=== PATIENT | male | born 1990 | race African-American/Black ===

== ENCOUNTER 2021-01-03 23:48 | Inpatient (IN) | payer OTHER ==
[2021-01-04 01:05] VITALS: BMI 20.9
[2021-01-04] MEDS ORDERED: BISMUTH SUBSALICYLATE 524 MG/30 ML PO PRN (03:13)
[2021-01-04] MEDS ORDERED: ONDANSETRON *ODT* 4 MG TABLET SL PRN (03:13)
[2021-01-04] MEDS ORDERED: ACETAMINOPHEN 325 MG TABLET (FP) PO PRN ×2 (03:13)
[2021-01-04] MEDS ORDERED: MAGNESIUM CITRATE 300 ML BOTTLE PO PRN (03:13)
[2021-01-04] MEDS ORDERED: NICOTINE POLACRILEX 2 MG GUM BUC PRN (03:13)
[2021-01-04] MEDS ORDERED: MAG HYDROX/AL HYDROX/SIMETH 30 ML UNIT-DOSE CUP PO PRN (03:13)
[2021-01-04] MEDS ORDERED: MENTHOL/PHENOL 1 EACH UD MM PRN (03:13)
[2021-01-04] MEDS ORDERED: IBUPROFEN 400 MG TABLET (FP) PO PRN (03:13)
[2021-01-04] MEDS ORDERED: MAGNESIUM HYDROX 2400MG/30ML ORAL SUSPENSION 30 ML CUP PO PRN (03:13)
[2021-01-04] MEDS ORDERED: METHOCARBAMOL 500 MG TABLET PO PRN (03:13)
[2021-01-04] MEDS ORDERED: diazePAM 5 MG TABLET PO PRN (03:16)
[2021-01-04] MEDS: diazePAM 5 MG TABLET PO SCH ×4 (19:08→22:23)
[2021-01-04] MEDS: PRENATAL VITAMINS W/ FOLIC ACID TABLET (FP) PO SCH (19:09)
[2021-01-04] MEDS: NICOTINE 14 MG/24 HOURS TOPICAL PATCH TD SCH (19:13)
[2021-01-04] MEDS: MELATONIN 5 MG TABLETS PO SCH (22:23)
[2021-01-04] MEDS: THIAMINE HCL 100 MG TABLET (FP) PO SCH (22:23)
[2021-01-05] MEDS: diazePAM 5 MG TABLET PO SCH ×3 (05:28→22:02)
[2021-01-05] MEDS: PRENATAL VITAMINS W/ FOLIC ACID TABLET (FP) PO SCH (10:14)
[2021-01-05] MEDS: NICOTINE 14 MG/24 HOURS TOPICAL PATCH TD SCH (10:15)
[2021-01-05 10:16] LABS: HEMATOCRIT 41.5 % (35.4-49); HEMOGLOBIN 13.4 GM/dL (11.7-16.9); MCH 30.3 pg (25.7-33.7); MCHC 32.3 g/dl (32.0-35.9); MEAN CELL VOLUME 93.8 fl (80-96); MEAN PLT VOLUME 8.7 fl (7.5-11.1); PLATELET COUNT 242 10^3/uL (134-434); RBC 4.43 M/mm3 (4.00-5.60); RDW 14.7 % (11.9-15.9); WHITE BLOOD COUNT 2.9 K/mm3 (4.0-10.0)
[2021-01-05 10:18] LABS: CALCIUM 9.4 mg/dL (8.5-10.1)
[2021-01-05 10:20] LABS: ALBUMIN 3.9 g/dl (3.4-5.0); BLOOD UREA NITROGEN 9.8 mg/dL (7-18)
[2021-01-05 10:23] LABS: CREATININE 1.3 mg/dL (0.55-1.3)
[2021-01-05 10:24] LABS: BILIRUBIN,TOTAL 1.9 mg/dL (0.2-1)
[2021-01-05] MEDS: THIAMINE HCL 100 MG TABLET (FP) PO SCH (22:03)
[2021-01-05] MEDS: MELATONIN 5 MG TABLETS PO SCH (22:03)
[2021-01-06] MEDS: diazePAM 5 MG TABLET PO SCH ×2 (05:15→17:36)
[2021-01-06] MEDS: NICOTINE 14 MG/24 HOURS TOPICAL PATCH TD SCH (10:34)
[2021-01-06] MEDS: PRENATAL VITAMINS W/ FOLIC ACID TABLET (FP) PO SCH (10:35)
[2021-01-06] MEDS: MELATONIN 5 MG TABLETS PO SCH (22:13)
[2021-01-06] MEDS: THIAMINE HCL 100 MG TABLET (FP) PO SCH (22:13)
[2021-01-07] MEDS ORDERED: diazePAM 5 MG TABLET PO ONE (06:00)
[2021-01-07 09:20] VITALS: BP 144/89; PULSE 81; TEMP 96.8
== END 2021-01-07 09:46 | disposition home or self-care (01) | DRG 775 ==
LOC: YASAS 23:48 → Y3N 01-04 02:34
PROVIDERS: ADMIT Allergy & Immunology; ATTEND Allergy & Immunology
PROC: HZ2ZZZZ Detoxification Services for Substance Abuse Treatment (ICD-10-PCS; principal; 2021-01-04)
DX: F10.230 Alcohol dependence with withdrawal, uncomplicated (principal); F12.20 Cannabis dependence, uncomplicated; F17.210 Nicotine dependence, cigarettes, uncomplicated; N63.20 Unspecified lump in the left breast, unspecified quadrant
CPT/HCPCS: 36415; 80053; 85027; 86780; 93005; 93010; C9803; U0003; U0005

== ENCOUNTER 2021-01-04 04:00 | Emergency (ER) | payer OTHER ==
[2021-01-04 04:09] VITALS: BMI 20.9
[2021-01-04 10:04] VITALS: TEMP 98.1
[2021-01-04] MEDS ORDERED: diazePAM CARPU-JECT 10 MG/2 ML DISP.SYRIN IM ONE (14:21)
[2021-01-04] MEDS ORDERED: diazePAM 5 MG TABLET PO ONE (14:24)
[2021-01-04] MEDS ORDERED: diazePAM 5 MG TABLET ONE (14:28)
[2021-01-04 17:17] VITALS: BP 110/60; PULSE 76
== END 2021-01-04 17:10 | disposition home or self-care (01) ==
LOC: JER 04:00
DX: N63.20 Unspecified lump in the left breast, unspecified quadrant (principal)
CPT/HCPCS: 99283-25